=== PATIENT | female | born 1965 | race Caucasian/White ===

== ENCOUNTER 2016-11-27 13:49 | Observation (INO) | payer OTHER ==
[2016-11-27] VITALS (10 sets, daily range): BP systolic 137–180; BP diastolic 66–94; PULSE 67–92; RESP 18–20; TEMP 97.9–98.5; O2SAT 92–100
[~2016-11-27] VITALS: Ht 160 cm; Wt 82.3 kg
[~2016-11-27 13:49] MED LIST: ALBU1AER INH; ATEN-102 PO; DUONI NEB; HYCO5UDC PO; LEVA500T33 PO; PRED50TA PO; PRIN5TAB PO
[2016-11-27] MEDS ORDERED: cloNIDine HCL 0.1 MG TAB PO ONE (14:15)
[2016-11-27] MEDS ORDERED: ASPIRIN 325 MG TAB PO ONE (14:15)
[2016-11-27] MEDS ORDERED: SODIUM CHLORIDE 0.9% FLUSH 10 ML FLUSH IVF PRN (14:15)
[2016-11-27] MEDS ORDERED: LISI40TA PO (14:16)
[2016-11-27] MEDS ORDERED: ATEN50TA PO (14:16)
[2016-11-27] MEDS ORDERED: LORA-373 PO (14:16)
[2016-11-27] MEDS ORDERED: ASPI1TAB69 PO (14:16)
--- NOTE | 2016-11-27 14:19 | PD ---
HPI Chief Complaint: Chest Pain Time Seen by Provider: 14:05 Travel History International Travel<30 days: No Contact w/Intl Traveler<30days: No Traveled to known affect area: No History of Present Illness HPI The patient was seen and examined in the presence of the nurse. This patient woke up at 5 AM with central sternal chest heaviness. Lasted about an hour and gradually faded away. No alleviating factors. It was not exertional. She reports a history of having 2 mild heart attacks. Has no stents. Has not had any cardiac testing in 2-3 years. She does smoke. Did not have an aspirin today. Severity was moderate. PFSH Past Medical History Arthritis: No Asthma: No Anxiety: Yes Depression: Yes Heart Rhythm Problems: No Cancer: No Cardiac Catheterization: No Cardiovascular Problems: No High Cholesterol: No Chemotherapy: No Chest Pain: Yes Congestive Heart Failure: No COPD: Yes Cerebrovascular Accident: No Diabetes: No Diminished Hearing: No Genitourinary: No Headaches: Yes (ALL THE TIME) Hypertension: Yes Immune Disorder: No Implanted Vascular Access Dvce: No Kidney Stones: Yes Musculoskeletal: No Neurologic: No Psychiatric: Yes ( DEPRESSION) Reproductive: Yes (CYSTS ON OVARIES) Respiratory: Yes Immunizations Current: Yes Migraines: Yes Pneumonia: Yes Radiation Therapy: No Seizures: No Sleep Apnea: No ?: Not Menopausal: No : 5 Para: 4 Miscarriage: 1 Dilation and Curettage (D&C): Yes Past Surgical History Abdominal Surgery: Yes (APENDECTOMY) Appendectomy: Yes Cardiac Surgery: No Section: Yes (X 4) Coronary Artery Bypass Graft: No Genitourinary Surgery: No Gynecologic Surgery: Yes (4 [facility]) Neurologic Surgery: No Thoracic Surgery: No Other Surgery: Yes (5 [facility] , APPENDECTOMY) Social History Alcohol Use: Yes ("OCCASIONALLY") Tobacco Use: Yes (1PACK/WK) Substance Use: No Allergies-Medications (Allergen,Severity, Reaction): Coded Allergies: Erythromycin (Verified Allergy, Intermediate, Hives, 11/27/16) Uncoded Allergies: PLASTIC (Allergy, Intermediate, HIVES, 11/27/16) Reported Meds & Prescriptions Reported Meds & Active Scripts Active Reported Aspirin 81 Mg Tabdr 81 Mg PO DAILY Lorazepam 0.5 Mg Tab 0.25 Mg PO BID PRN Lisinopril 40 Mg Tab 40 Mg PO BID Atenolol 50 Mg Tab 50 Mg PO DAILY Review of Systems General / Constitutional: No: Fever Eyes: No: Visual changes HENT: No: Headaches Cardiovascular: Positive: Chest Pain or Discomfort Respiratory: No: Shortness of Breath Gastrointestinal: No: Abdominal Pain Genitourinary: No: Dysuria Musculoskeletal: No: Pain Skin: No Rash Neurologic: No: Weakness Psychiatric: No: Depression Endocrine: No: Polydipsia Hematologic/Lymphatic: No: Easy Bruising Physical Exam Narrative GENERAL: Well-nourished, well-developed patient in no apparent distress. SKIN: Focused skin assessment reveals no rash and nodules. Skin is Warm and dry. HEAD: Atraumatic. Normocephalic. EYES: Pupils equal and round. No scleral icterus. No injection or drainage. ENT: No nasal bleeding or discharge. Mucous membranes pink and moist. NECK: Trachea midline. No JVD. CARDIOVASCULAR: Regular rate and rhythm. No murmur appreciated. RESPIRATORY: No accessory muscle use. Clear to auscultation. Breath sounds equal bilaterally. GASTROINTESTINAL: Abdomen soft, non-tender, nondistended. Hepatic and splenic margins not palpable. MUSCULOSKELETAL: No obvious deformities. No clubbing. No cyanosis. No edema. NEUROLOGICAL: Awake and alert. No obvious cranial nerve deficits. Motor grossly within normal limits. Normal speech. PSYCHIATRIC: Appropriate mood and affect; insight and judgment normal. Data Data Last Documented VS Vital Signs Date Time Temp Pulse Resp B/P Pulse Ox O2 Delivery O2 Flow Rate FiO2 11/27/16 15:53 79 18 137/82 97 Room Air 11/27/16 14:02 98.5 Orders Electrocardiogram (11/27/16 14:15) Basic Metabolic Panel (Bmp) (11/27/16 14:15) Ckmb (Isoenzyme) Profile (11/27/16 14:15) Complete Blood Count With Diff (11/27/16 14:15) Prothrombin Time / Inr (Pt) (11/27/16 14:15) Act Partial Throm Time (Ptt) (11/27/16 14:15) Troponin I (11/27/16 14:15) Chest, Single Ap (11/27/16 14:15) Ecg Monitoring (11/27/16 14:15) Iv Access Insert/Monitor (11/27/16 14:15) Oximetry (11/27/16 14:15) Aspirin (Aspirin) (11/27/16 14:15) Sodium Chloride 0.9% Flush (Ns Flush) (11/27/16 14:15) Clonidine (Catapres) (11/27/16 14:15) Labs Laboratory Tests Test 11/27/16 14:22 White Blood Count 8.8 TH/MM3 Red Blood Count 4.67 MIL/MM3 Hemoglobin 13.9 GM/DL Hematocrit 42.0 % Mean Corpuscular Volume 89.8 FL Mean Corpuscular Hemoglobin 29.7 PG Mean Corpuscular Hemoglobin 33.1 % Concent Red Cell Distribution Width 13.7 % Platelet Count 272 TH/MM3 Mean Platelet Volume 7.6 FL Neutrophils (%) (Auto) 71.6 % Lymphocytes (%) (Auto) 21.8 % Monocytes (%) (Auto) 5.0 % Eosinophils (%) (Auto) 1.4 % Basophils (%) (Auto) 0.2 % Neutrophils # (Auto) 6.4 TH/MM3 Lymphocytes # (Auto) 1.9 TH/MM3 Monocytes # (Auto) 0.4 TH/MM3 Eosinophils # (Auto) 0.1 TH/MM3 Basophils # (Auto) 0.0 TH/MM3 CBC Comment DIFF FINAL Differential Comment Prothrombin Time 9.8 SEC Prothromb Time International 0.9 RATIO Ratio Activated Partial 24.4 SEC Thromboplast Time Sodium Level 143 MEQ/L Potassium Level 3.8 MEQ/L Chloride Level 106 MEQ/L Carbon Dioxide Level 28.3 MEQ/L Anion Gap 9 MEQ/L Blood Urea Nitrogen 18 MG/DL Creatinine 0.89 MG/DL Estimat Glomerular Filtration 67 ML/MIN Rate Random Glucose 123 MG/DL Calcium Level 8.1 MG/DL Total Creatine Kinase 60 U/L Troponin I LESS THAN 0.02 NG/ML MDM Medical Decision Making Medical Screen Exam Complete: Yes Emergency Medical Condition: Yes Medical Record Reviewed: Yes Differential Diagnosis Differential diagnosis includes AK, angina, pericarditis, pleurisy, GERD, anxiety. Narrative Course I have reviewed the patient's electronic medical record. IV placed I reviewed the EKG which shows sinus rhythm but no acute ST elevation I reviewed the chest x-ray which is normal Extended cardiac monitoring shows sinus rhythm without ectopy CBC is normal Metabolic profile is normal CK is normal Troponin is normal Coagulation studies are normal I gave her an aspirin I gave her a low-dose of clonidine for blood pressure 180 systolic Workup here is negative. I spoke with the covering person for the patient's engine manager. This turns out to be the PA for Dr. Bernard. She recommended chest pain center observation and I discussed with hospitalist who is in agreement. Diagnosis Primary Impression: Chest pain Qualified Code: R07.2 - Precordial pain Additional Impression: Hypertension Qualified Code: I10 - Essential hypertension Admitting Information Admitting Physician Requests: Observation Raul Verduzco MD Nov 27, 2016 14:19
[2016-11-27 14:31] LABS: AUTOMATED NEUTROPHIL # 6.4 TH/MM3 (1.8-7.7); BASOPHIL % 0.2 % (0.0-2.0); EOSINOPHIL # 0.1 TH/MM3 (0-0.4); EOSINOPHIL % 1.4 % (0.0-4.0); HEMO FLAGS DIFF FINAL; LYMPH % 21.8 % (9.0-44.0); LYMPHOCYTE # 1.9 TH/MM3 (1.0-4.8); MEAN CELL VOLUME 89.8 FL (80.0-100.0); MEAN CORPUSCULAR HEMOGLOBIN 29.7 PG (27.0-34.0); MEAN CORPUSCULAR HGB CONC 33.1 % (32.0-36.0); NEUT % 71.6 % (16.0-70.0); PLATELET COUNT 272 TH/MM3 (150-450); RED BLOOD COUNT 4.67 MIL/MM3 (4.00-5.30); RED CELL DISTRIBUTION WIDTH 13.7 % (11.6-17.2); WHITE BLOOD COUNT 8.8 TH/MM3 (4.0-11.0)
[2016-11-27 14:43] LABS: CHLORIDE 106 MEQ/L (98-107); POTASSIUM 3.8 MEQ/L (3.5-5.1); SODIUM (NA) 143 MEQ/L (136-145)
[2016-11-27 14:46] LABS: ANION GAP 9 MEQ/L (5-15); BICARBONATE 28.3 MEQ/L (21.0-32.0); BLOOD UREA NITROGEN 18 MG/DL (7-18)
[2016-11-27 14:48] LABS: APTT (PATIENT) 24.4 SEC (24.3-30.1); INTERNATIONAL NORMALIZED RATIO 0.9 RATIO; PROTHROMBIN TIME - PATIENT 9.8 SEC (9.8-11.6)
[2016-11-27 14:50] LABS: GLOMERULAR FILTRATION RATE 67 ML/MIN (>89)
[2016-11-27 14:55] LABS: CREATINE KINASE 60 U/L (26-192)
--- NOTE | 2016-11-27 14:55 | RADHPO ---
EXAM DATE/TIME: 11/27/2016 14:27 [facility] COMPARISON: CHEST SINGLE AP, February 03, 2016, 16:10. INDICATIONS : Short of breath. Chest pain MEDICAL HISTORY : Chronic obstructive pulmonary disease. SURGICAL HISTORY : None. ENCOUNTER: Initial ACUITY: 1 day PAIN SCORE: 7/10 LOCATION: Bilateral chest FINDINGS: A single view of the chest demonstrates the lungs to be symmetrically aerated without evidence of mas s, infiltrate or effusion. The cardiomediastinal contours are unremarkable. Osseous structures are intact. CONCLUSION: No acute disease. Jaspreet Blakely MD FACR on November 27, 2016 at 14:53 Board Certified Radiologist. This report was verified electronically.
[2016-11-27] MEDS ORDERED: ONDANSETRON HCL 4 MG/2 ML VIAL IV PRN (16:30)
[2016-11-27] MEDS ORDERED: ACETAMINOPHEN 500 MG CPLT PO PRN (16:30)
[2016-11-27] MEDS ORDERED: NITROGLYCERIN 0.4 MG SL 25 TABS/BTL SL PRN (16:30)
[2016-11-27] MEDS ORDERED: LORazepam 0.5 MG TAB PO PRN (16:30)
[2016-11-27] MEDS: ACETAMINOPHEN/HYDROcodone 325 MG/7.5 MG TAB PO PRN ×2 (18:17→22:28)
[2016-11-27 19:28] LABS: CREATINE KINASE 59 U/L (26-192)
[2016-11-27] MEDS: LISINOPRIL 20 MG TAB PO SCH (20:28)
[2016-11-28] VITALS: BP 150/75; PULSE 61; RESP 20; TEMP 97; O2SAT 95
[2016-11-28 04:00] VITALS: BP 135/86; PULSE 60; RESP 18; TEMP 97.3; O2SAT 94
[2016-11-28 08:00] VITALS: BP 151/78; PULSE 64; PULSE 78; RESP 20; TEMP 97.5; O2SAT 96
[2016-11-28] MEDS: ACETAMINOPHEN/HYDROcodone 325 MG/7.5 MG TAB PO PRN ×2 (08:38→13:44)
[2016-11-28] MEDS: LISINOPRIL 20 MG TAB PO SCH (08:38)
[2016-11-28] MEDS ORDERED: ATENOLOL 50 MG TAB PO SCH (09:00)
[2016-11-28] MEDS ORDERED: ASPIRIN EC 81 MG TABEC PO SCH (09:00)
[2016-11-28 09:35] VITALS: O2SAT 94
[2016-11-28] MEDS ORDERED: PNEUMOCOCCAL POLYVALENT INJ 25 MCG/0.5 ML SYR IM ONE (10:00)
--- NOTE | 2016-11-28 10:14 | HHI.HP ---
[facility] Primary Care Physician Redd Meza DO Admission Diagnosis chest pain Diagnoses: (1) Chest pain Diagnosis: Principal (2) Hypertension Diagnosis: Secondary (3) Tobacco use Diagnosis: Secondary (4) Family history of heart disease Diagnosis: Secondary Chief Complaint: Chest pain Travel History International Travel<30 Days: No Contact w/Intl Traveler <30 Da: No Traveled to Known Affected Are: No History of Present Illness 51-year-old female with known history of hypertension, anxiety, tobacco use who presented to the hospital because of chest discomfort and shortness of breath. Patient states that she has been having at least 6 months worth of shortness of breath, dyspnea on exertion. She usually sees Dr. Kapoor for primary medical doctor, Dr. Riggins for cardiology. She has not notified any of those physicians of her symptoms over the last 6 months. She states that she has been having dyspnea on exertion when she pushes a shopping cart. He indicates that she has got lightheaded dizziness and has syncopal episode a couple months ago. 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 She indicates that she felt a pressure-like sensation in her chest that woke her up at 4 AM in the morning. Described as a 7/10 on a pain scale. The patient noticed that her blood pressure was elevated throughout the day and she tried to take medications to get it down to include benzodiazepine, ask her blood pressure medication without any success. She continued to have chest pressure and the doctors that she worked for told her to come to the hospital for evaluation. Upon presentation she did have some mildly elevated blood pressure at 180/93. Patient was given clonidine with improvement of her blood pressure. The patient denied any nausea, vomiting. She has had dyspnea on exertion, shortness of breath. She has had intermittent lightheadedness and near syncope with exertion over the last 6 months. There is symptoms she was recommended observation chest pain center. Past Family Social History Past Medical History Hypertension Anxiety Tobacco use History of nephrolithiasis History post depression Past Surgical History Appendectomy C-spine surgery Reported Medications Reported Meds & Active Scripts Active Reported Aspirin 81 Mg Tabdr 81 Mg PO DAILY Lorazepam 0.5 Mg Tab 0.25 Mg PO BID PRN Lisinopril 40 Mg Tab 40 Mg PO BID Atenolol 50 Mg Tab 50 Mg PO DAILY Allergies: Coded Allergies: Erythromycin (Verified Allergy, Intermediate, Hives, 11/27/16) Uncoded Allergies: PLASTIC (Allergy, Intermediate, HIVES, 11/27/16) Family History Reviewed and significant for grandparents having heart disease Social History Patient does continue to smoke about half a pack a day since she was 16 years old, she does drink alcohol on weekends. She denies any illicit drugs Physical Exam Vital Signs Vital Signs Date Time Temp Pulse Resp B/P Pulse Ox O2 Delivery O2 Flow Rate FiO2 11/28/16 09:35 94 21 11/28/16 08:00 97.5 64 20 151/78 96 11/28/16 04:00 97.3 60 18 135/86 94 11/28/16 00:00 97.0 61 20 150/75 95 11/27/16 23:32 18 11/27/16 20:52 98.0 73 20 152/94 92 11/27/16 20:00 67 11/27/16 19:50 98 21 11/27/16 18:29 78 11/27/16 17:35 97.9 69 20 164/85 97 11/27/16 17:12 68 18 154/66 97 Room Air 11/27/16 16:52 97 21 11/27/16 15:53 79 18 137/82 97 Room Air 11/27/16 14:17 92 100 Room Air 11/27/16 14:02 98.5 92 18 180/93 100 11/27/16 14:00 98 Room Air Physical Exam GENERAL: Well-developed, well-nourished, in no acute distress. alert and orientated HEENT: Head is normocephalic without any lesions or masses noted. Facial features are symmetric. Eyes: Pupils equal round reactive to light. Extraocular muscles are intact. Conjunctivae were clear. Oropharyngeal: Pharynx without any erythema edema. Tongue is midline without deviation. Buccal mucosa is moist without any masses or lesions NECK: Supple without any masses. Trachea midline no deviation. No JVD, no bruits are appreciated CARDIAC: Regular rhythm, regular rate. S1/S2 are heard. No murmurs gallops or rubs. LUNGS: Clear to auscultation bilaterally. No wheeze, rhonchi or rales. No use of accessory muscles on inspiration or expiration. ABDOMEN: Soft, nontender. Nondistended. Bowel sounds heard in all 4 quadrants. No organomegaly or masses. Negative rebound, negative guarding EXTREMITIES: No edema, pulses are equal bilaterally. No cyanosis or clubbing NEUROLOGY: Mood and affect appear appropriate. Cranial nerves II through XII grossly intact. Muscle strength 5/5 in upper and lower extremities bilaterally. Deep tendon reflexes are 2+ in upper and lower extremities bilaterally. Laboratory Laboratory Tests Test 11/27/16 11/27/16 11/27/16 14:22 18:48 22:20 White Blood Count 8.8 Red Blood Count 4.67 Hemoglobin 13.9 Hematocrit 42.0 Mean Corpuscular Volume 89.8 Mean Corpuscular Hemoglobin 29.7 Mean Corpuscular Hemoglobin 33.1 Concent Red Cell Distribution Width 13.7 Platelet Count 272 Mean Platelet Volume 7.6 Neutrophils (%) (Auto) 71.6 Lymphocytes (%) (Auto) 21.8 Monocytes (%) (Auto) 5.0 Eosinophils (%) (Auto) 1.4 Basophils (%) (Auto) 0.2 Neutrophils # (Auto) 6.4 Lymphocytes # (Auto) 1.9 Monocytes # (Auto) 0.4 Eosinophils # (Auto) 0.1 Basophils # (Auto) 0.0 CBC Comment DIFF FINAL Differential Comment Prothrombin Time 9.8 Prothromb Time International 0.9 Ratio Activated Partial 24.4 Thromboplast Time Sodium Level 143 Potassium Level 3.8 Chloride Level 106 Carbon Dioxide Level 28.3 Anion Gap 9 Blood Urea Nitrogen 18 Creatinine 0.89 Estimat Glomerular Filtration 67 Rate Random Glucose 123 Calcium Level 8.1 Total Creatine Kinase 60 59 Troponin I LESS THAN 0.02 LESS THAN 0.02 LESS THAN 0.02 Result Diagram: 11/27/16 1422 11/27/16 1422 Imaging Last Impressions Chest X-Ray 11/27/16 1415 Signed Impressions: Service Date/Time: Sunday, November 27, 2016 14:27 - CONCLUSION: No acute disease. Jaspreet Blakely MD FACR Assessment and Plan Assessment and Plan Chest discomfort with associated shortness of breath, accelerated hypertension , lightheaded dizziness: Patient does have increased risk factors to include age , heart disease, tobacco use, family history. Patient having ruled out for any acute coronary event with serial cardiac enzymes which are negative. Serial EKGs are reviewed and showed sinus rhythm without any changes. Patient states that she cannot undergo a exercise stress test, that she can only undergo chemical stress test. Nuclear stress test was performed which was negative for any underlying ischemia. Accelerated Hypertension: Will resume patient's home medications Anxiety: Resume home medications DVT prevention: Sequential compression devices Written by Raul Ramsay PA-C, acting as scribe for Dr. Mckeon on 11/28/16 at 1330. The documentation accurately reflects the work and decisions performed face-to- face by Dr. Mckeon on 11/28/16 at 1330. Discharge disposition Discharge home in stable condition and stress test is negative Activity: Ad hugh. Diet: Healthy heart diet Medications per medication reconciliation Follow-up primary medical doctor in one week, portable machine cutter in 2 weeks All or portions of this note were transcribed by scribe Raul Ramsay. I, Dr. Za Mckeon personally performed the history, physical exam, and medical decision making; and confirmed the accuracy of the information in the transcribed note. Problem Qualifiers (1) Chest pain: Qualified Code: R07.2 - Precordial pain (2) Hypertension: Qualified Code: I10 - Essential hypertension Raul Ramsay Nov 28, 2016 10:14 Za Mckeon MD Nov 28, 2016 18:20
[2016-11-28] MEDS ORDERED: REGADENOSON INJ 0.4 MG/5 ML SYR IV ONE (11:30)
[2016-11-28 12:00] VITALS: BP 174/81; PULSE 54; RESP 20; TEMP 96.9; O2SAT 99
--- NOTE | 2016-11-28 12:46 | RADHPO ---
EXAM DATE/TIME: 11/28/2016 11:36 [facility] COMPARISON: MYOCARDIAL PERF PHARM SPECT, GATED W/EF, July 02, 2015, 16:16. INDICATIONS : Central chest pain. Angina. DOSE: 25.4 mCi Tc99m Myoview at stress. 8.5 mCi Tc99m Myoview at rest. 0.4 mg Lexiscan STRESS SYMPTOMS: Dyspnea and headache. EJECTION FRACTION: 40% MEDICAL HISTORY : Hypertension. Chronic obstructive pulmonary disease. SURGICAL HISTORY : Appendectomy. section. ENCOUNTER: Initial ACUITY: 1 day PAIN SCALE: 6/10 LOCATION: Substernal chest TECHNIQUE: The patient underwent pharmacologic stress with infusion of prescribed dose. Continuous ECG tracing was monitored during stress. Gated SPECT imaging was performed after stress and conventional SPECT i maging was performed at rest. The examination was performed on a SPECT/CT scanner, both attenuation and non-corrected datasets were reviewed. FINDINGS: DISTRIBUTION: The maximum perfused segment at stress is in the anterior septal wall. PERFUSION STUDY: The pattern of perfusion at stress is within normal limits. GATED STUDY: There is intact wall motion and thickening without hypokinetic or dyskinetic segments. CONCLUSION: Negative for stress-induced ischemia.. RISK CATEGORY: Low (<1% Annual Mortality Rate) Jaspreet Blakely MD FACR on November 28, 2016 at 12:41 Board Certified Radiologist. This report was verified electronically.
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
--- NOTE | 2016-11-29 13:19 | EKG ---
Date Performed: 11/27/2016 Time Performed: 13:53:28 PTAGE: 51 years EKG: Sinus tachycardia Normal ECG except for rate PREVIOUS TRACING : 07/02/2015 13.48 DOCTOR: Ignacio Alcala Interpretating Date/Time 11/29/2016 13:19:39
--- NOTE | 2016-11-29 13:34 | EKG ---
Date Performed: 11/27/2016 Time Performed: 18:44:20 PTAGE: 51 years EKG: Sinus rhythm . Normal ECG PREVIOUS TRACING : 11/27/2016 13.53 DOCTOR: Ignacio Alcala Interpretating Date/Time 11/29/2016 13:33:24
--- NOTE | 2016-11-29 13:38 | EKG ---
Date Performed: 11/27/2016 Time Performed: 22:16:12 PTAGE: 51 years EKG: Sinus rhythm . Normal ECG PREVIOUS TRACING : 11/27/2016 18.44 DOCTOR: Ignacio Alcala Interpretating Date/Time 11/29/2016 13:38:01
--- NOTE | 2016-11-29 14:04 | TR ---
Date Performed: 11/28/2016 Time Performed: 11:36:40 DOCTOR: Ignacio Alcala DRUG LIST: CLINICAL HISTORY: CHEST PAIN CHEST PAIN REASON FOR TEST: Chest pain REASON FOR ENDING: OBSERVATION: CONCLUSION: Lexiscan stress test was performed under standard four minute protocol. Radionuclide was injected one minute prior to ending the test. Developed dyspnea, dizziness and headache; systoli c blood pressure was mildly elevated. Rare PACs were noted. No electrocardiographic abnormalities wer e present to suggest ischemia. Recovery was quick and uneventful with resolution of symptoms, systoli c blood pressure remained mildly elevated. Nuclear imaging and interpretation are pending. COMMENTS:
== END 2016-11-28 16:00 | disposition home or self-care (01) ==
LOC: PHED 13:49 → PHEDA 16:26 → PH3B 17:37
PROVIDERS: ADMIT Family Medicine; ATTEND Family Medicine
DX: R07.89 Other chest pain (principal); R06.02 Shortness of breath; F41.9 Anxiety disorder, unspecified; F32.9 Major depressive disorder, single episode, unspecified; J44.9 Chronic obstructive pulmonary disease, unspecified; I10 Essential (primary) hypertension; F17.200 Nicotine dependence, unspecified, uncomplicated; Z87.01 Personal history of pneumonia (recurrent); Z88.8 Allergy status to other drugs, medicaments and biological substances; Z91.048 Other nonmedicinal substance allergy status; Z79.82 Long term (current) use of aspirin; Z82.49 Family history of ischemic heart disease and other diseases of the circulatory system
CPT/HCPCS: 71010; 78452; 80048; 82550; 84484; 85025; 85610; 85730; 93005; 93017; 99285; A9502; G0378; J2785

== ENCOUNTER 2017-03-30 14:18 | Emergency (ER) | payer OTHER ==
[~2017-03-30] VITALS: Ht 160 cm; Wt 82.3 kg
[~2017-03-30 14:18] MED LIST changes: -ALBU1AER INH; +ASPI1TAB69 PO; -ATEN-102 PO; +ATEN50TA PO; -DUONI NEB; -HYCO5UDC PO; -LEVA500T33 PO; +LISI40TA PO; +LORA-373 PO; -PRED50TA PO; -PRIN5TAB PO
[2017-03-30 14:22] VITALS: BP 206/113; PULSE 125; RESP 16; TEMP 99.7; O2SAT 98
[2017-03-30] MEDS ORDERED: LISI-515 PO ×2 (14:37→15:35)
[2017-03-30] MEDS ORDERED: IBUPROFEN 400 MG TAB PO ONE (14:45)
[2017-03-30] MEDS ORDERED: AMOXICILLIN/CLAVULANATE K 875 MG TAB PO ONE (14:45)
[2017-03-30] MEDS ORDERED: DIPHTH/TETANUS/ACEL PERTUSSIS (BOOSTER) 0.5 ML VIAL/PFS IM ONE (14:45)
[2017-03-30] MEDS ORDERED: ACETAMINOPHEN 500 MG CPLT PO ONE (14:45)
[2017-03-30] MEDS ORDERED: AUGM875T3 PO (15:17)
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
[2017-03-30] MEDS ORDERED: ATEN50TA PO (15:35)
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
== END 2017-03-30 15:43 | disposition home or self-care (01) ==
LOC: PHEFT 14:18
DX: S61.250A Open bite of right index finger without damage to nail, initial encounter (principal); T14.8 Other injury of unspecified body region; I10 Essential (primary) hypertension; Y04.1XXA Assault by human bite, initial encounter; Z23 Encounter for immunization
CPT/HCPCS: 73140; 90471; 90715

== ENCOUNTER 2018-01-04 06:48 | Day surgery (SDC) | payer OTHER ==
[~2018-01-04] VITALS: Ht 160 cm; Wt 83.3 kg
[~2018-01-04 06:48] MED LIST changes: -ASPI1TAB69 PO; +AUGM875T3 PO; +LISI-515 PO; -LISI40TA PO; -LORA-373 PO; +LORA0.5T PO
[2018-01-04] MEDS ORDERED: IOHEXOL 350 MG/ML 100 ML BTL (for Cath Lab) OTHER ONE (06:49)
[2018-01-04 07:20] VITALS: BP 139/88; PULSE 75; RESP 19; TEMP 98.9; O2SAT 94
[2018-01-04] MEDS ORDERED: ASPI-516 CHEW (07:39)
[2018-01-04] MEDS ORDERED: LISI-515 PO (07:39)
[2018-01-04] MEDS ORDERED: AMLO5TAB2 PO (07:39)
[2018-01-04] MEDS ORDERED: ATOR40TA16 PO (07:39)
[2018-01-04] MEDS ORDERED: ALBUAER3 INH (07:39)
[2018-01-04] MEDS ORDERED: UMEC1AER INH (07:39)
[2018-01-04] MEDS ORDERED: ATEN50TA PO (07:39)
[2018-01-04] MEDS ORDERED: NS 1000P @30 MLS/HR (KVO) IV SCH (08:00)
[2018-01-04] MEDS ORDERED: MIDAZOLAM HCL 2 MG/2 ML VIAL ONE (08:32)
[2018-01-04] MEDS ORDERED: HEPARIN-NS/PF FLUSH BAG 2,000 ML IV FLUSH ONE (08:32)
[2018-01-04] MEDS ORDERED: VERAPAMIL HCL 5 MG/2 ML VIAL ONE (08:37)
[2018-01-04] MEDS ORDERED: NITROGLYCERIN INJ 5 ML ONE (08:37)
[2018-01-04] MEDS ORDERED: HEPARIN SODIUM - IV 10,000 UNITS/10 ML VIAL ONE (08:37)
[2018-01-04] MEDS ORDERED: SODIUM CHLOR 0.9% 1000 ML INJ 1,000 ML IV SCH (09:36)
[2018-01-04] MEDS ORDERED: SODIUM CHLORIDE 0.9% FLUSH 10 ML FLUSH IV FLUSH PRN (09:45)
[2018-01-04] MEDS ORDERED: MISC INFORMATION XX ONE (09:45)
[2018-01-04] MEDS ORDERED: SODIUM CHLORIDE 0.9% FLUSH 10 ML FLUSH IV FLUSH SCH (21:00)
--- NOTE | 2018-01-05 09:58 | MA ---
cc: Vasquez Gillespie DO DATE: 01/04/2018 ATTENDING PHYSICIAN: Vasquez Gillespie DO. PROCEDURES PERFORMED: 1. Selective right and left coronary angiography. 2. Left heart catheterization. PREPROCEDURE DIAGNOSIS: Chest pain. POSTPROCEDURE DIAGNOSIS: Normal epicardial coronary arteries. ANESTHESIA: 1. Fentanyl and Versed were used for conscious sedation. 2. Lidocaine was used for local anesthetic. MEDICATIONS: A total of 200 mcg of nitroglycerin, 400 mcg of verapamil and 3000 units of heparin were administered throughout the case. COMPLICATIONS: None. INFORMED CONSENT: Prior to the procedure, the patient was informed of the risks of the procedure including, but not limited to bleeding, vascular complications, stroke, myocardial infarction, need for emergent bypass surgery, infection, arrhythmia, contrast allergy and . Expressing an understanding of these risks, the patient agreed to proceed with the procedure. DESCRIPTION OF PROCEDURE: After informed consent was obtained, the patient was brought to the cardiac catheterization lab in a postabsorptive state. The patient was prepped and draped in the usual sterile fashion. Time-out was taken in order to verify the patient, procedure, and preprocedure labs. The right radial artery was identified by anatomic location and palpation of the radial pulse and overlying subcutaneous layers were anesthetized with 1% lidocaine. The right radial artery was cannulated with a 2.5 cm Cook type needle using a modified Seldinger technique. A micropuncture wire was advanced into the radial artery without difficulty. A 6-Czech glide sheath was then advanced over the wire and with wire and dilator removed, the sidearm was flushed with sterile saline and subsequently flushed between catheter exchanges. A JR5 diagnostic catheter was advanced over a J wire into the ascending aorta and with J wire removed was unsuccessful in engaging the right coronary artery. The catheter was exchanged over an exchange length wire for a JR 3.5 diagnostic catheter which engaged the right coronary artery. Serial orthogonal angiographic images were obtained. The catheter was exchanged over an exchange length guidewire for a JL3.5 diagnostic catheter which engaged the left coronary artery. Serial orthogonal angiographic images were obtained. The catheter inadvertently crossed the aortic valve into the left ventricle. Left ventricular hemodynamics were obtained along with manual pullback across the aortic valve to measure gradients. The catheter was removed over a wire and with the completion of the case. The sheath was pulled with a HemoBand applied with hemostasis achieved prior to the patient leaving the cardiac catheterization laboratory in stable condition. ANGIOGRAPHIC FINDINGS: 1. Left main coronary artery: Left main coronary artery arises from the aorta in its usual position. It is a short length medium caliber vessel and gives rise to a left circumflex and caliber vessel and is angiographically free of disease. 2. LAD: The LAD is a moderate caliber vessel and gives rise to a moderate sized first diagonal branch and smaller sized diagonals before coursing and wrapping around the apex before continuing distally to wrap the apex. The LAD and diagonal vessels are angiographically free of disease. 3. Right coronary artery: The right coronary artery arises from the aorta in an anterior position as a dominant vessel. It continues distally with a right-sided PDA. The RCA and PDA are angiographically free of disease. HEMODYNAMIC FINDINGS: LVEDP 12 mmHg with no significant gradient across the aortic valve upon manual pullback. CONCLUSION: Noncardiac chest pain with normal epicardial coronary arteries. We will discontinue aspirin 81 mg. PLAN: Discontinue aspirin for secondary prevention purposes. She will be referred back to her PCP for evaluation of noncardiac chest pain. DO KANIKA Bangura , 09:37 AM , 09:57 AM
== END 2018-01-04 12:45 | disposition home or self-care (01) ==
LOC: HDOC 06:48 → HDIC 06:48 → HDOC 12:45
PROVIDERS: ATTEND Internal Medicine Cardiovascular Disease
DX: R07.89 Other chest pain (principal); I48.91 Unspecified atrial fibrillation; I25.2 Old myocardial infarction; I10 Essential (primary) hypertension; Z01.818 Encounter for other preprocedural examination
CPT/HCPCS: 84702; 93458; C1769; C1893; J1644; J2250; J3010; Q9967